=== PATIENT | female | born 1960 | race American Indian/Alaskan Native ===

== ENCOUNTER 2023-10-14 21:54 | Emergency (ER) | payer OTHER ==
[~2023-10-14] VITALS: Ht 160 cm; Wt 63.5 kg
[~2023-10-14 21:54] MED LIST: NORCO 5-325 TA1 EACH PO; ZITHROMAX250 MG PO
[2023-10-14] MEDS ORDERED: LO-DOSE ASPIRIN81 MG PO (22:08)
[2023-10-14] MEDS ORDERED: PERCOCET 5-3251 EACH PO (22:58)
[2023-10-14 23:20] VITALS: BP 154/95
== END 2023-10-14 23:20 | disposition home or self-care (01) ==
LOC: ED 21:54
DX: S42.292A Other displaced fracture of upper end of left humerus, initial encounter for closed fracture (principal); E11.9 Type 2 diabetes mellitus without complications; F17.210 Nicotine dependence, cigarettes, uncomplicated; Y93.K1 Activity, walking an animal; W18.30XA Fall on same level, unspecified, initial encounter; W54.1XXA Struck by dog, initial encounter; Z79.82 Long term (current) use of aspirin
CPT/HCPCS: 70450; 73030; 96374; 96375; 99284-25; J1170; J2270

== ENCOUNTER 2024-05-21 10:32 | Emergency (ER) | payer OTHER ==
[~2024-05-21] VITALS: Ht 160 cm; Wt 63.1 kg
[~2024-05-21 10:32] MED LIST changes: +LO-DOSE ASPIRIN81 MG PO; +PERCOCET 5-3251 EACH PO
[2024-05-21] MEDS ORDERED: ACETAMINOPHEN 500 MG TAB PO ONE (10:45)
[2024-05-21] MEDS ORDERED: ALBUTEROL/IPRATROPIUM 3 ML NEB INH ONE (11:00)
[2024-05-21] MEDS ORDERED: AZITHROMYCIN/DEXTROSE 500 MG/250 ML BAG IV ONE (11:00)
[2024-05-21] MEDS ORDERED: CEFTRIAXONE/SODIUM CHLORIDE 2 GM/100 ML PIGGYBACK IV ONE (11:00)
[2024-05-21] MEDS ORDERED: methylPREDNISolone SOD SUCC 125 MG/2 ML VIAL IV ONE (11:00)
[2024-05-21] MEDS ORDERED: HYDROmorphone HCL 1 MG/ML SYR IV ONE (11:30)
[2024-05-21] MEDS ORDERED: SODIUM CHLORIDE 0.9% 1,000 ML IV ONE (11:30)
[2024-05-21] MEDS ORDERED: ondansetron HCL 4 MG/2 ML VIAL IV ONE ×2 (11:30→13:15)
[2024-05-21 11:53] LABS: BASOPHILS 0.6 % (0-2); EOSINOPHILS 0.7 % (0-6); HEMATOCRIT 35.5 % (35.0-50.0); HEMOGLOBIN 11.9 g/dL (12.0-18.0); LYMPHOCYTES 13.2 % (24-44); MCH 29.9 (27-36); MCHC 33.6 g/dl (30-36); NEUTROPHILS 79.5 % (39-80); PLATELET COUNT 291 K/uL (140-440); RBC 3.99 M/ul (4.3-5.7); RDW 14.9 (10.5-15.0)
[2024-05-21 12:08] LABS: ALBUMIN 3.4 g/dL (3.4-5.0); ALBUMIN/GLOBULIN RATIO 0.79 (1.1-2.4); BILIRUBIN, TOTAL 1.2 ng/dL (0.2-1.0); BUN/CREATININE RATIO 9.9 (6.0-28.6); CALCIUM 9.3 mg/dL (8.5-10.1); CREATININE, SERUM 1.01 mg/dL (0.55-1.02); PROTEIN, TOTAL 7.7 g/dL (6.4-8.2)
[2024-05-21 12:28] LABS: INFLUENZA B NAA NEGATIVE (NEGATIVE); RESPIRATORY SYNCYTIAL VIR NAA NEGATIVE (NEGATIVE)
[2024-05-21 13:14] LABS: BILIRUBIN, URINE NEGATIVE (negative); BLOOD/HGB, URINE NEGATIVE (Negative); KETONE, URINE NEGATIVE (Negative); LEUK ESTERASE, URINE NEGATIVE (negative); NITRITE, URINE NEGATIVE (negative); PH, URINE 7.5 (5-7)
[2024-05-21] MEDS ORDERED: ONDANSETRON ODT8 MG SL (14:32)
[2024-05-21] MEDS ORDERED: AMOX TR-K CLV1 EAC1 PO (14:32)
[2024-05-21] MEDS ORDERED: PERCOCET 5-3251 EACH PO (14:32)
[2024-05-21 14:43] VITALS: BP 122/57
== END 2024-05-21 14:43 | disposition home or self-care (01) ==
LOC: ED 10:32
PROVIDERS: Emergency Medicine
DX: R51.9 Headache, unspecified (principal); B34.9 Viral infection, unspecified; H66.91 Otitis media, unspecified, right ear; E11.9 Type 2 diabetes mellitus without complications; F17.200 Nicotine dependence, unspecified, uncomplicated; Z86.73 Personal history of transient ischemic attack (TIA), and cerebral infarction without residual deficits; Z79.82 Long term (current) use of aspirin
CPT/HCPCS: 36415; 71045; 80053; 81003; 83605; 84484; 85025; 85610; 85730; 87040; 87502; 96374; 96375; 96376; 99284-25; J1170; J2405; J7030; U0002